=== PATIENT | female | born 1970 | race Caucasian/White ===

== ENCOUNTER 2025-04-16 08:53 | Emergency (ER) | payer OTHER ==
[~2025-04-16] VITALS: Ht 160 cm; Wt 60.3 kg
== END 2025-04-16 10:13 | disposition home or self-care (01) ==
LOC: ED 08:53
DX: S93.402A Sprain of unspecified ligament of left ankle, initial encounter (principal); Z88.0 Allergy status to penicillin; Z88.8 Allergy status to other drugs, medicaments and biological substances; Z90.49 Acquired absence of other specified parts of digestive tract; Z90.710 Acquired absence of both cervix and uterus; Z98.890 Other specified postprocedural states; I10 Essential (primary) hypertension; F41.9 Anxiety disorder, unspecified; W18.39XA Other fall on same level, initial encounter; Y93.01 Activity, walking, marching and hiking; Y92.89 Other specified places as the place of occurrence of the external cause; Y99.8 Other external cause status